=== PATIENT | male | born 1985 | race Hispanic/Latino ===

== ENCOUNTER 2020-04-02 01:20 | Emergency (ER) | payer SELFPAY ==
[~2020-04-02] VITALS: Ht 167.6 cm; Wt 77.0 kg
[~2020-04-02 01:20] MED LIST: AMOXICILLIN500 MG PO; AMOXICILLIN875 MG OR; CIPROFLOXACN500 MG PO; FLEXERIL5 M1 PO; FLONASE NASAL50 MCG; LORTAB 10 PO; LORTAB5 PO; MEDDOSEPAK OR; MUCINEX600 MG PO; NAPROSYN500 MG PO; NO HOME MEDS; PROAIR HFA IN; SUDAFED 12HR120 MG OR; TORADOL OR; VICOPROFEN PO; ZOFRAN ODT8 MG PO
[2020-04-02 01:56] VITALS: BP 150/100
== END 2020-04-02 02:56 | DRG 951 ==
LOC: ED 01:20
DX: Z02.89 Encounter for other administrative examinations (principal); J45.909 Unspecified asthma, uncomplicated; F17.210 Nicotine dependence, cigarettes, uncomplicated; Z72.89 Other problems related to lifestyle

== ENCOUNTER 2020-04-11 13:40 | Emergency (ER) | payer OTHER ==
[~2020-04-11] VITALS: Ht 167.6 cm; Wt 70.0 kg
[2020-04-11] MEDS ORDERED: FLEXERIL5 M1 PO (14:57)
[2020-04-11 15:05] VITALS: BP 162/88
== END 2020-04-11 15:05 | disposition home or self-care (01) | DRG 156 ==
LOC: ED 13:40
DX: S02.2XXA Fracture of nasal bones, initial encounter for closed fracture (principal); S16.1XXA Strain of muscle, fascia and tendon at neck level, initial encounter; S40.212A Abrasion of left shoulder, initial encounter; S00.31XA Abrasion of nose, initial encounter; J45.909 Unspecified asthma, uncomplicated; F17.200 Nicotine dependence, unspecified, uncomplicated; V49.40XA Driver injured in collision with unspecified motor vehicles in traffic accident, initial encounter

== ENCOUNTER 2022-02-05 08:58 | Emergency (ER) | payer SELFPAY ==
[~2022-02-05] VITALS: Ht 167.6 cm; Wt 68.1 kg
[2022-02-05 09:07] VITALS: BP 152/103
[2022-02-05 09:24] LABS: URINE BILIRUBIN - DIPSTICK NEGATIVE (NEGATIVE); URINE BLOOD DIPSTICK LARGE (NEGATIVE); URINE GLUCOSE - DIPSTICK NEGATIVE (NEGATIVE); URINE KETONE NEGATIVE (NEGATIVE); URINE LEUK ESTERASE NEGATIVE (NEGATIVE); URINE PH 5.5 (4.5-8.0); URINE PROTEIN - DIPSTICK 30 mg/dL (NEG-TRACE); URINE SPECIFIC GRAVITY >=1.030; URINE UROBILINOGEN - DIPSTICK 0.2 E.U./dL (0.2)
[2022-02-05 09:25] LABS: URINE COLOR DK. YELLOW; URINE NITRITE - DIPSTICK NEGATIVE (Negative)
[2022-02-05 09:26] LABS: HEMATOCRIT 43.8 % (39.0-50.0); HEMOGLOBIN 14.9 g/dl (14.0-18.0); IMMATURE GRANULOCYTES 0.2 % (0.0-5.0); MEAN CELL VOLUME 97.8 fL CALC (80.0-100.0); MEAN CORPUSCULAR HGB 33.3 pG CALC (26.0-32.0); NEUT# 3.69 thou/uL (1.82-7.42); RED BLOOD COUNT 4.48 mill/uL (4.70-6.10); RED CELL DISTRI WIDTH 12.9 % (11.5-15.5)
[2022-02-05 09:29] LABS: URINE RBC 50-100 RBC/hpf (0-5); URINE SQUAMOUS EPITHELIAL CELL FEW EPI/hpf (0-FEW)
[2022-02-05 09:30] LABS: URINE CALCIUM OXALATE CRYSTALS FEW lpf
[2022-02-05 09:52] LABS: ALKALINE PHOSPHATASE 104 u/l (38-126); BILIRUBIN, TOTAL 0.6 mg/dL (0.0-1.4); BUN 11 mg/dL (9-20); BUN/CREATININE RATIO 14 (12-20 (CALC)); CHLORIDE 106 mmol/l (95-108); CREATININE 0.8 mg/dL (0.7-1.3); GFR FOR AFR.AMER. > 60 ML/MIN (>=60 (CALC)); GFR OTHER RACES > 60 ML/MIN (>=60 (CALC)); SODIUM 140 mmol/l (137-146)
[2022-02-05 10:00] LABS: ALBUMIN 4.4 g/dL (3.2-5.0); ANION GAP 14 (6-22 (CALC)); CARBON DIOXIDE 23 mmol/l (22-30); POTASSIUM 3.1 mmol/l (3.5-5.1); SGOT/AST 158 u/l (17-59)
[2022-02-05] MEDS ORDERED: TRAMADOL HYDROC50 M1 PO (10:11)
[2022-02-05] MEDS ORDERED: ZOFRAN4 MG/TAB PO (10:11)
[2022-02-05 10:15] VITALS: BP 152/103
== END 2022-02-05 10:23 | disposition home or self-care (01) | DRG 694 ==
LOC: ED 08:58
PROVIDERS: Family Medicine
DX: N20.2 Calculus of kidney with calculus of ureter (principal); J45.909 Unspecified asthma, uncomplicated; Z87.442 Personal history of urinary calculi

== ENCOUNTER 2022-08-01 21:08 | Emergency (ER) | payer OTHER ==
[~2022-08-01] VITALS: Ht 167.6 cm; Wt 71.3 kg
[2022-08-01] VITALS (8 sets, daily range): BP systolic 130–148; BP diastolic 89–107
[~2022-08-01 21:08] MED LIST changes: +TRAMADOL HYDROC50 M1 PO; +ZOFRAN4 MG/TAB PO
[2022-08-01 21:52] LABS: BASO% 0.3 % (0-3); EOS% 0.3 % (0-8); HEMATOCRIT 40.8 % (39.0-50.0); HEMOGLOBIN 14.3 g/dl (14.0-18.0); IMMATURE GRANULOCYTES 0.7 % (0.0-5.0); LYMPH% 17.7 % (15-41); MEAN CELL VOLUME 95.1 fL CALC (80.0-100.0); MEAN CORPUSCULAR HGB 33.3 pG CALC (26.0-32.0); MONO% 10.9 % (2-13); NEUT# 4.22 thou/uL (1.82-7.42); NEUT% 70.1 % (42-76); RED BLOOD COUNT 4.29 mill/uL (4.70-6.10); RED CELL DISTRI WIDTH 12.6 % (11.5-15.5)
[2022-08-01 22:01] LABS: ALKALINE PHOSPHATASE 120 u/l (38-126); ANION GAP 23 (6-22 (CALC)); BILIRUBIN, TOTAL 2.4 mg/dL (0.2-1.3); BUN 14 mg/dL (9-20); BUN/CREATININE RATIO 20 (12-20 (CALC)); CARBON DIOXIDE 20 mmol/l (22-30); CHLORIDE 91 mmol/l (95-108); CREATININE 0.7 mg/dL (0.7-1.3); GFR FOR AFR.AMER. > 60 ML/MIN (>=60 (CALC)); GFR OTHER RACES > 60 ML/MIN (>=60 (CALC)); POTASSIUM 2.9 mmol/l (3.5-5.1); SGOT/AST 236 u/l (17-59); SODIUM 131 mmol/l (137-146); TOTAL PROTEIN 8.5 g/dL (6.3-8.2)
[2022-08-02] VITALS (12 sets, daily range): BP systolic 114–147; BP diastolic 74–102
[2022-08-02 02:13] LABS: BUN 11 mg/dL (9-20); BUN/CREATININE RATIO 20 (12-20 (CALC)); CHLORIDE 96 mmol/l (95-108); CREATININE 0.6 mg/dL (0.7-1.3); GFR FOR AFR.AMER. > 60 ML/MIN (>=60 (CALC)); GFR OTHER RACES > 60 ML/MIN (>=60 (CALC)); POTASSIUM 3.4 mmol/l (3.5-5.1); SODIUM 132 mmol/l (137-146)
[2022-08-02 02:19] LABS: ANION GAP 12 (6-22 (CALC)); CARBON DIOXIDE 27 mmol/l (22-30)
[2022-08-02 02:23] LABS: URINE BILIRUBIN - DIPSTICK SMALL (NEGATIVE); URINE BLOOD DIPSTICK NEGATIVE (NEGATIVE); URINE COLOR AMBER; URINE GLUCOSE - DIPSTICK NEGATIVE (NEGATIVE); URINE KETONE 40 mg/dL (NEGATIVE); URINE LEUK ESTERASE NEGATIVE (NEGATIVE); URINE NITRITE - DIPSTICK NEGATIVE (Negative); URINE PROTEIN - DIPSTICK TRACE mg/dL (NEG-TRACE); URINE UROBILINOGEN - DIPSTICK >=8.0 E.U./dL (0.2)
[2022-08-02] MEDS ORDERED: LIBRIUM25 MG PO ×4 (02:41→02:53)
== END 2022-08-02 02:55 | DRG 101 ==
LOC: ED 21:08
PROVIDERS: Emergency Medicine
DX: R56.9 Unspecified convulsions (principal); F19.10 Other psychoactive substance abuse, uncomplicated; E87.6 Hypokalemia; J45.909 Unspecified asthma, uncomplicated; Z20.822 Contact with and (suspected) exposure to COVID-19
CPT/HCPCS: J2060; Q9967

== ENCOUNTER 2022-10-07 19:54 | Inpatient (IN) | payer SELFPAY ==
[2022-10-07] VITALS (11 sets, daily range): BP systolic 119–142; BP diastolic 72–104
[~2022-10-07] VITALS: Ht 167.6 cm; Wt 72.0 kg
[~2022-10-07 19:54] MED LIST changes: +LIBRIUM25 MG PO
[2022-10-07 20:50] LABS: BASO% 0.3 % (0-3); LYMPH% 3.8 % (15-41); MEAN CORPUSCULAR HGB 32.4 pG CALC (26.0-32.0); MEAN CORPUSCULAR HGB CONC 34.1 g/dL CAL (32.0-36.0); MONO% 7.6 % (2-13); NEUT# 11.02 thou/uL (1.82-7.42); NEUT% 87.3 % (42-76); RED BLOOD COUNT 5.62 mill/uL (4.70-6.10); RED CELL DISTRI WIDTH 14.3 % (11.5-15.5)
[2022-10-07 21:06] LABS: ALBUMIN 5.2 g/dL (3.2-5.0); BILIRUBIN, TOTAL 2.1 mg/dL (0.2-1.3); BUN 7 mg/dL (9-20); BUN/CREATININE RATIO 7 (12-20 (CALC)); CHLORIDE 94 mmol/l (95-108); CPK 185 u/l (55-170); ETHYL ALCOHOL 0 mg/dl (0-30); GFR FOR AFR.AMER. > 60 ML/MIN (>=60 (CALC)); GFR OTHER RACES > 60 ML/MIN (>=60 (CALC)); MAGNESIUM 1.8 mg/dL (1.6-2.3); TOTAL PROTEIN 9.2 g/dL (6.3-8.2)
[2022-10-07 21:08] LABS: HEMATOCRIT 53.4 % (39.0-50.0); HEMOGLOBIN 18.2 g/dl (14.0-18.0)
[2022-10-07 21:11] LABS: SGOT/AST 196 u/l (17-59)
[2022-10-07 21:16] LABS: ALKALINE PHOSPHATASE 218 u/l (38-126); ANION GAP 30 (6-22 (CALC)); CARBON DIOXIDE 19 mmol/l (22-30); SODIUM 140 mmol/l (137-146)
[2022-10-08] VITALS (16 sets, daily range): BP systolic 100–149; BP diastolic 64–95
[2022-10-08 01:02] LABS: URINE BLOOD DIPSTICK MODERATE (NEGATIVE); URINE COLOR YELLOW; URINE GLUCOSE - DIPSTICK NEGATIVE (NEGATIVE); URINE KETONE TRACE mg/dL (NEGATIVE); URINE LEUK ESTERASE NEGATIVE (NEGATIVE); URINE PROTEIN - DIPSTICK 30 mg/dL (NEG-TRACE)
[2022-10-08 01:03] LABS: URINE BILIRUBIN - DIPSTICK SMALL (NEGATIVE); URINE NITRITE - DIPSTICK NEGATIVE (Negative)
[2022-10-08 01:09] LABS: URINE MUCUS MANY hpf (NONE-FEW); URINE SQUAMOUS EPITHELIAL CELL FEW EPI/hpf (0-FEW)
[2022-10-08 05:20] LABS: BASO% 0.3 % (0-3); IMMATURE GRANULOCYTES 0.2 % (0.0-5.0); LYMPH% 7.1 % (15-41); MEAN CELL VOLUME 97.9 fL CALC (80.0-100.0); MEAN CORPUSCULAR HGB 33.3 pG CALC (26.0-32.0); MONO% 10.9 % (2-13); NEUT# 7.3 thou/uL (1.82-7.42); NEUT% 81.5 % (42-76); RED BLOOD COUNT 4.32 mill/uL (4.70-6.10); RED CELL DISTRI WIDTH 14.6 % (11.5-15.5)
[2022-10-08 05:21] LABS: HEMATOCRIT 42.3 % (39.0-50.0); HEMOGLOBIN 14.4 g/dl (14.0-18.0)
[2022-10-08 05:34] LABS: BUN 6 mg/dL (9-20); BUN/CREATININE RATIO 9 (12-20 (CALC)); CHLORIDE 103 mmol/l (95-108); CREATININE 0.7 mg/dL (0.7-1.3); GFR FOR AFR.AMER. > 60 ML/MIN (>=60 (CALC)); GFR OTHER RACES > 60 ML/MIN (>=60 (CALC)); POTASSIUM 3.1 mmol/l (3.5-5.1); SODIUM 137 mmol/l (137-146)
[2022-10-08 05:35] LABS: ANION GAP 10 (6-22 (CALC)); CARBON DIOXIDE 27 mmol/l (22-30)
[2022-10-08 15:32] LABS: CHOLESTEROL HDL RATIO 2.6 (<4.4 (CALC))
[2022-10-09 04:47] VITALS: BP 143/94
[2022-10-09 05:18] LABS: HEMATOCRIT 42.1 % (39.0-50.0); HEMOGLOBIN 14.4 g/dl (14.0-18.0); MEAN CORPUSCULAR HGB 33.2 pG CALC (26.0-32.0); MEAN CORPUSCULAR HGB CONC 34.2 g/dL CAL (32.0-36.0); RED BLOOD COUNT 4.34 mill/uL (4.70-6.10); RED CELL DISTRI WIDTH 14.3 % (11.5-15.5)
[2022-10-09 05:36] LABS: ALBUMIN 3.4 g/dL (3.2-5.0); ALKALINE PHOSPHATASE 115 u/l (38-126); ANION GAP 9 (6-22 (CALC)); BILIRUBIN, TOTAL 1.4 mg/dL (0.2-1.3); BUN 4 mg/dL (9-20); BUN/CREATININE RATIO 6 (12-20 (CALC)); CARBON DIOXIDE 32 mmol/l (22-30); CHLORIDE 100 mmol/l (95-108); CREATININE 0.6 mg/dL (0.7-1.3); GFR FOR AFR.AMER. > 60 ML/MIN (>=60 (CALC)); GFR OTHER RACES > 60 ML/MIN (>=60 (CALC)); MAGNESIUM 1.6 mg/dL (1.6-2.3); POTASSIUM 2.9 mmol/l (3.5-5.1); SGOT/AST 107 u/l (17-59); SODIUM 137 mmol/l (137-146); TOTAL PROTEIN 6.2 g/dL (6.3-8.2)
[2022-10-09 06:37] VITALS: BP 124/87
[2022-10-09 15:37] VITALS: BP 145/101
[2022-10-09 15:38] VITALS: BP 139/106
[2022-10-09 15:39] VITALS: BP 145/101
[2022-10-09 19:15] VITALS: BP 165/115
[2022-10-10 00:05] VITALS: BP 133/98
[2022-10-10 03:48] VITALS: BP 154/105
[2022-10-10 05:45] LABS: HEMATOCRIT 45.6 % (39.0-50.0); HEMOGLOBIN 15.4 g/dl (14.0-18.0); MEAN CELL VOLUME 97.9 fL CALC (80.0-100.0); MEAN CORPUSCULAR HGB CONC 33.8 g/dL CAL (32.0-36.0); RED BLOOD COUNT 4.66 mill/uL (4.70-6.10); RED CELL DISTRI WIDTH 14.7 % (11.5-15.5)
[2022-10-10 06:02] LABS: ALBUMIN 3.6 g/dL (3.2-5.0); ALKALINE PHOSPHATASE 115 u/l (38-126); ANION GAP 12 (6-22 (CALC)); BILIRUBIN, TOTAL 1.1 mg/dL (0.2-1.3); BUN 6 mg/dL (9-20); BUN/CREATININE RATIO 8 (12-20 (CALC)); CARBON DIOXIDE 31 mmol/l (22-30); CHLORIDE 100 mmol/l (95-108); CREATININE 0.7 mg/dL (0.7-1.3); GFR FOR AFR.AMER. > 60 ML/MIN (>=60 (CALC)); GFR OTHER RACES > 60 ML/MIN (>=60 (CALC)); MAGNESIUM 1.5 mg/dL (1.6-2.3); POTASSIUM 3.2 mmol/l (3.5-5.1); SGOT/AST 100 u/l (17-59); SODIUM 138 mmol/l (137-146); TOTAL PROTEIN 6.7 g/dL (6.3-8.2)
[2022-10-10 07:15] VITALS: BP 149/107
[2022-10-10] MEDS ORDERED: VITAMIN B-1100 M1 PO (09:38)
[2022-10-10] MEDS ORDERED: LEVETIRACETAM500 MG PO (09:38)
[2022-10-10] MEDS ORDERED: ATORVASTATIN CA40 MG PO (09:38)
[2022-10-10] MEDS ORDERED: LIBRIUM25 MG PO (09:39)
[2022-10-10] MEDS ORDERED: FOLIC ACID1 M1 PO (09:39)
[2022-10-10] MEDS ORDERED: ASPIRIN ADULT L81 M2 PO (09:39)
== END 2022-10-10 10:43 | disposition home or self-care (01) | DRG 65 ==
LOC: ED 19:54 → MS2 10-08 01:30
PROVIDERS: Family Medicine; Psychiatry & Neurology Neurology; ADMIT Internal Medicine; ATTEND Internal Medicine
DX: I63.522 Cerebral infarction due to unspecified occlusion or stenosis of left anterior cerebral artery (principal); E87.20 Acidosis, unspecified; R43.8 Other disturbances of smell and taste; R56.9 Unspecified convulsions; R29.700 NIHSS score 0; E86.0 Dehydration; D32.0 Benign neoplasm of cerebral meninges; S00.93XA Contusion of unspecified part of head, initial encounter; D72.829 Elevated white blood cell count, unspecified; K14.0 Glossitis; F14.10 Cocaine abuse, uncomplicated; F12.10 Cannabis abuse, uncomplicated; J45.909 Unspecified asthma, uncomplicated; F10.20 Alcohol dependence, uncomplicated; V86.55XA Driver of 3- or 4- wheeled all-terrain vehicle (ATV) injured in nontraffic accident, initial encounter; Z82.49 Family history of ischemic heart disease and other diseases of the circulatory system; Z84.89 Family history of other specified conditions; Z86.73 Personal history of transient ischemic attack (TIA), and cerebral infarction without residual deficits; Z20.822 Contact with and (suspected) exposure to COVID-19
CPT/HCPCS: A9579; J1650; J1953; J2060; J3475; Q9967

== ENCOUNTER 2023-03-20 19:17 | Emergency (ER) | payer SELFPAY ==
[2023-03-20] VITALS (8 sets, daily range): BP systolic 116–152; BP diastolic 75–113
[~2023-03-20] VITALS: Ht 167.6 cm; Wt 79.0 kg
[~2023-03-20 19:17] MED LIST changes: +ASPIRIN ADULT L81 M2 PO; +ATORVASTATIN CA40 MG PO; +FOLIC ACID1 M1 PO; +LEVETIRACETAM500 MG PO; +VITAMIN B-1100 M1 PO
[2023-03-20 19:49] LABS: BASO% 0.1 % (0-3); EOS% 0.1 % (0-8); HEMOGLOBIN 13.8 g/dl (14.0-18.0); IMMATURE GRANULOCYTES 0.2 % (0.0-5.0); LYMPH% 8.1 % (15-41); MEAN CELL VOLUME 93.1 fL CALC (80.0-100.0); MEAN CORPUSCULAR HGB 34.1 pG CALC (26.0-32.0); MEAN CORPUSCULAR HGB CONC 36.6 g/dL CAL (32.0-36.0); MONO% 8.9 % (2-13); NEUT# 16.1 thou/uL (1.82-7.42); NEUT% 82.6 % (42-76); RED BLOOD COUNT 4.05 mill/uL (4.70-6.10); RED CELL DISTRI WIDTH 13.8 % (11.5-15.5)
[2023-03-20 19:56] LABS: HEMATOCRIT 37.7 % (39.0-50.0)
[2023-03-20 20:00] LABS: ALBUMIN 3.9 g/dL (3.2-5.0); BUN 8 mg/dL (9-20); BUN/CREATININE RATIO 14 (12-20 (CALC)); CARBON DIOXIDE 36 mmol/l (22-30); CREATININE 0.6 mg/dL (0.7-1.3); ETHYL ALCOHOL 0 mg/dl (0-30); GFR FOR AFR.AMER. > 60 ML/MIN (>=60 (CALC)); GFR OTHER RACES > 60 ML/MIN (>=60 (CALC)); LIPASE 101 u/l (23-300); SGOT/AST 144 u/l (17-59)
[2023-03-20 20:02] LABS: SODIUM 131 mmol/l (137-146)
[2023-03-20 20:03] LABS: ALKALINE PHOSPHATASE 219 u/l (38-126); ANION GAP 17 (6-22 (CALC)); BILIRUBIN, TOTAL 3.2 mg/dL (0.2-1.3); CHLORIDE 80 mmol/l (95-108); TOTAL PROTEIN 8.3 g/dL (6.3-8.2)
[2023-03-20 20:07] LABS: ACT PARTIAL THROMBO TIME 25.9 SECONDS (20.0-32.5); INTERNATIONAL NORMALIZED RATIO 1.2 RATIO (0.7-1.3); PROTHROMBIN TIME 11.4 SECONDS (9.0-12.5)
[2023-03-21] VITALS: BP 111/78
[2023-03-21 00:30] VITALS: BP 123/81
[2023-03-21 01:00] VITALS: BP 124/76
[2023-03-21 01:30] VITALS: BP 109/74
[2023-03-21 02:00] VITALS: BP 110/70
[2023-03-21 02:30] VITALS: BP 110/70
== END 2023-03-21 02:30 | disposition short-term general hospital (02) | DRG 379 ==
LOC: ED 19:17
PROVIDERS: Family Medicine
DX: K92.0 Hematemesis (principal); F10.20 Alcohol dependence, uncomplicated; E87.6 Hypokalemia; D72.829 Elevated white blood cell count, unspecified; J45.909 Unspecified asthma, uncomplicated; G40.909 Epilepsy, unspecified, not intractable, without status epilepticus; F17.200 Nicotine dependence, unspecified, uncomplicated
CPT/HCPCS: J2354; Q9967; S0164